=== PATIENT | female | born 1975 | race African-American/Black ===

== ENCOUNTER 2017-02-27 16:16 | Observation (INO) | payer OTHER, SELFPAY | END 2017-02-28 09:00 | disposition home or self-care (01) | PROVIDERS: Admitting Provider Internal Medicine Adolescent Medicine; Emergency Provider Emergency Medicine; Family Provider Emergency Medicine; Visit Provider Emergency Medicine | DX: I50.9 Heart failure, unspecified (principal); I89.0 Lymphedema, not elsewhere classified; E66.01 Morbid (severe) obesity due to excess calories; Z68.45 Body mass index [BMI] 70 or greater, adult | CPT/HCPCS: 36415; 71020; 71275; 80053; 82550; 82553; 82803; 83880; 84484; 85025; 85378; 87040; 93005; 93041; 94640; 94760; 96372; 96374; 96375; 99285; G0378; Q9967 ==

== ENCOUNTER → 2017-03-25 08:44 | Outpatient (CLI) | payer OTHER, SELFPAY ==
--- NOTE | 2017-03-25 08:49 | CA_ITS ---
PROCEDURE: 2-D M-mode and color Doppler study INDICATIONS FOR THE TEST: Chest pain COPD Heart Murmur Tobacco Smoking Palpitations Fatigue Syncope Edema HypertensionXDiabetes Mellitus Rheumatic Fever SOBXDOEXObesityXHyperlipidemia Family History HD Additional History CHF PATIENT INFORMATION HEIGHT: 64 WEIGHT:380 GENDER: Female B/P:140/90 2-D/M-MODE INTERPRETATION: 2-D MEASUREMENTS OBSERVED VALUES IN CMS Right Ventricular Dimension (RVDd) 3.3 Interventricular Septum (Thickness)(IVsd) 1.0 Left Ventricular Internal Dimensions(LVIDd) 4.6 Left Ventricular Posterior Wall (Thickness)(LVPWd) 1.1 Aortic Root 3.3 Aortic Cusp Separation 2.2 Left Atrial Dimensions (LAD) 3.1 2D 1. Left atrium is mildly enlarged, left ventricle is normal size, left ventricle wall thickness is upper limit of the normal, visually estimated ejection fraction 55% with no obvious regional wall motion abnormality. 2. The right atrium and right ventricle are moderately enlarged, contractility of the right ventricle is mildly reduced. 3. The aortic valve is minimally thickened and fibrosed. 4. The mitral and tricuspid valve is grossly normal. 5. The pulmonic valve is poorly visualized. 6. No significant pericardial effusion noted. DOPPLER INTERROGATION: Doppler interrogation of the aortic, mitral and tricuspid valve reveals presence of mild mitral and tricuspid regurgitation, tricuspid and jet velocity is insufficient for calculation of the right ventricular systolic pressure, diastolic parameters are inconclusive. Agitated saline contrast study fails to identify intracardiac shunt. CONCLUSION: 1. Mildly enlarged left atrium, normal left ventricular size, visually estimated ejection fraction 55% with no obvious regional wall motion abnormality, diastolic parameters are inconclusive. 2. Moderately enlarged right ventricle is mildly reduced contractility. 3. Mild mitral and tricuspid regurgitation. 4. No significant pericardial effusion noted.
[2017-03-25 11:03] LABS: Anion Gap 4.7 mEq/L (5-15); Blood Urea Nitrogen 11 mg/dL (7-18); Chloride 97 mmol/L (98-107); Creatinine,Serum 0.87 mg/dL (0.55-1.02); Estimated Glomerular Filt Rate 72 ml/min (>60); GFR (African American) 87 ML/MIN (>60); Glucose 100 mg/dL (74-106); Potassium 3.7 mmoL/L (3.5-5.1); Sodium 139 mmol/L (136-145)
[2017-03-25 11:07] LABS: Carbon Dioxide 41 mmol/L (21.0-32.0)
== END ==
PROVIDERS: Physician Assistant; Family Provider Emergency Medicine; PCP Emergency Medicine; Visit Provider Internal Medicine Cardiovascular Disease
DX: I50.30 Unspecified diastolic (congestive) heart failure (principal); G47.33 Obstructive sleep apnea (adult) (pediatric); E66.9 Obesity, unspecified
CPT/HCPCS: 36415; 80048; 83880; 93306

== ENCOUNTER → 2017-04-15 11:00 | Outpatient (CLI) | payer OTHER, SELFPAY ==
[2017-04-15 12:31] LABS: Anion Gap 8.3 mEq/L (5-15); Blood Urea Nitrogen 14 mg/dL (7-18); Carbon Dioxide 38 mmol/L (21.0-32.0); Chloride 100 mmol/L (98-107); Creatinine,Serum 0.81 mg/dL (0.55-1.02); Estimated Glomerular Filt Rate 78 ml/min (>60); GFR (African American) 94 ML/MIN (>60); Glucose 86 mg/dL (74-106); Potassium 4.3 mmoL/L (3.5-5.1); Sodium 142 mmol/L (136-145)
== END ==
PROVIDERS: Family Provider Emergency Medicine; PCP Emergency Medicine; Visit Provider Internal Medicine Cardiovascular Disease
DX: I50.33 Acute on chronic diastolic (congestive) heart failure (principal); R06.02 Shortness of breath; G47.33 Obstructive sleep apnea (adult) (pediatric); R09.02 Hypoxemia; R94.31 Abnormal electrocardiogram [ECG] [EKG]; I10 Essential (primary) hypertension; E66.9 Obesity, unspecified
CPT/HCPCS: 36415; 80048; 83880

== ENCOUNTER 2017-05-06 15:00 | Outpatient (RCR) | payer OTHER, SELFPAY ==
--- NOTE | 2017-04-23 08:28 | HMH.RHREAS ---
Rehab Reassessment Rehab OP Re-assessment Start: 04/23/17 08:21 Freq: Status: Active Protocol: Document 04/23/17 08:21 SUKUMAR (Rec: 04/23/17 08:27 SUKUMAR [id number]) Electronically Signed By Levi Ochoa, PT 04/23/17 08:21 Rehab Re-assessment Subjective Subjective Pt reports much less pain overall and wounds healing well. Objective Objective Notes Fibrotic edema remains throughout shawn Lower legs. Right anterior mungu[place] wound: length = 2.0 cm, width = 2.0 cm. Assessment Progress Assessment Progressing as Expected Assessment Notes Pt with decreased edema overall and less c/o discomfort. Wound healing steadily. Patient goals met ST,2,3,4,5 LT Goals Not Met ST LT,2,3,4,5,6 Revised Goals none Plan Plan Continue with initial POC Frequency of Therapy 2x/wk Duration of therapy 8 wks Time and Billing Re-Eval Time 15 Re-Eval Billing Units 1 PHYSICIAN CERTIFICATION: I certify the specified therapy services for Jackie Stevens are required, authorized, and reviewed every 30 days.
== END 2017-05-06 15:01 | disposition home or self-care (01) ==
LOC: PT 15:00
PROVIDERS: Family Provider Emergency Medicine; PCP Emergency Medicine; Visit Provider Emergency Medicine
DX: S81.802A Unspecified open wound, left lower leg, initial encounter (principal); S81.801A Unspecified open wound, right lower leg, initial encounter
CPT/HCPCS: 29580; 97140; 97164; 97597

== ENCOUNTER → 2018-05-16 14:07 | Outpatient (CLI) | payer OTHER, SELFPAY ==
[2018-05-16 14:33] LABS: Basophils % 0.5 % (0.1-2.0); Eosinophils # 0.5 K/mm3 (0.0-0.4); Eosinophils % 6.9 % (0.1-12.0); Hematocrit 50.8 % (37.0-47.0); Hemoglobin 14.4 g/dL (12.2-16.2); Lymphocytes # 1.6 K/mm3 (0.7-4.5); Lymphocytes % 20.1 % (10-50); Mean Corpuscular HGB Conc 28.4 g/dL (31.8-35.4); Mean Corpuscular Hemoglobin 25.9 pg (27.0-31.2); Mean Corpuscular Volume 91.3 fl (81-99); Monocytes # 0.3 K/mm3 (0.1-1.0); Monocytes % 4.3 % (1.7-9.3); Neutrophils # 5.4 K/mm3 (1.8-7.8); Neutrophils % 68.2 % (37.0-80.0); Platelet Count 233 K/mm3 (142-424); Red Blood Count 5.57 M/mm3 (4.20-5.40); Red Cell Distribution Width 14.7 % (11.5-17.5); White Blood Count 7.9 K/mm3 (4.8-10.8)
[2018-05-16 14:41] LABS: Alanine Aminotransferase 23 U/L (12-78); Albumin Level 3.5 gm/dL (3.4-5.0); Albumin/Globulin Ratio 0.8 (1.1-1.8); Alkaline Phosphatase 168 U/L (46-116); Anion Gap 10.1 mEq/L (5-15); Aspartate Amino Transferase 16 U/L (15-37); Bilirubin,Total 0.3 mg/dL (0.2-1.0); Blood Urea Nitrogen 7 mg/dL (7-18); Calcium 8.6 mg/dL (8.5-10.1); Carbon Dioxide 34 mmol/L (21.0-32.0); Chloride 101 mmol/L (98-107); Chol/HDL Ratio 2.2 (1-3.5); Cholesterol 163 mg/dL (140-200); Creatinine,Serum 0.72 mg/dL (0.55-1.02); Estimated Glomerular Filt Rate 89 ml/min (>60); GFR (African American) 107 ML/MIN (>60); Globulin 4.4 gm/dl (1.3-3.2); Glucose 119 mg/dL (74-106); HDL Cholesterol 73 mg/dL (29-89); LDL Cholesterol 78 mg/dL (0-130); Potassium 4.1 mmoL/L (3.5-5.1); Sodium 141 mmol/L (136-145); T4 (Thyroxine) 8.8 ug/dl (4.7-13.3); Thyroid Stimulating Hormone 2.22 uIU/ml (0.358-3.740); Total Protein,Serum 7.9 gm/dL (6.4-8.2); Triglycerides 59 mg/dL (30-200); VLDL Cholesterol 12 mg/dL (0-40)
[2018-05-17 09:44] LABS: Vitamin D 25 Hydroxy 6.8 ng/mL (30.0-100.0)
== END ==
PROVIDERS: Visit Provider Nurse Practitioner Family
DX: R53.83 Other fatigue (principal); E55.9 Vitamin D deficiency, unspecified; Z79.899 Other long term (current) drug therapy; R06.02 Shortness of breath; R06.2 Wheezing
CPT/HCPCS: 80053; 80061; 82652; 84436; 84443; 85025

== ENCOUNTER 2018-08-04 13:32 | Observation (INO) ==
[2018-08-04 14:09] LABS: Albumin/Globulin Ratio 0.7 (1.1-1.8); Anion Gap 7.2 mEq/L (5-15); Bilirubin,Total 0.9 mg/dL (0.2-1.0); Calcium 8.3 mg/dL (8.5-10.1); Globulin 4.3 gm/dl (1.3-3.2); Potassium 4.2 mmoL/L (3.5-5.1); Total Protein,Serum 7.3 gm/dL (6.4-8.2)
[2018-08-04 14:10] LABS: Basophils % 0.3 % (0.1-2.0); Eosinophils # 0.2 K/mm3 (0.0-0.4); Eosinophils % 1.7 % (0.1-12.0); Hematocrit 48.4 % (37.0-47.0); Hemoglobin 13.6 g/dL (12.2-16.2); Lymphocytes # 1.6 K/mm3 (0.7-4.5); Lymphocytes % 17.5 % (10-50); Mean Corpuscular Hemoglobin 22.9 pg (27.0-31.2); Mean Platelet Volume 7.9 fl (7.4-10.4); Monocytes # 0.7 K/mm3 (0.1-1.0); Neutrophils # 6.8 K/mm3 (1.8-7.8); Neutrophils % 72.4 % (37.0-80.0); Platelet Count 238 K/mm3 (142-424); Red Blood Count 5.91 M/mm3 (4.20-5.40); Red Cell Distribution Width 15.2 % (11.5-17.5); White Blood Count 9.3 K/mm3 (4.8-10.8)
[2018-08-04 14:23] LABS: ABG Base Excess 4.2 mmol/L (-2.4-2.3); ABG HCO3 29.3 mmhg (22.0-26.0); ABG Oxygen Saturation 89 % (90-100); ABG PCO2 49.9 mmhg (35.0-45.0); ABG PH 7.39 mmol/L (7.35-7.45); ABG PO2 58.2 mmhg (80-100); ABG TCO2 30.8 mmhg (23-27)
[2018-08-04 14:25] LABS: Allen's Test Acceptable
--- NOTE | 2018-08-04 15:00 | Emergency Department Note ---
ED Disposition Clinical Impression: Hypoxemia, CHF (congestive heart failure) Disposition: Admitted as Observation Condition on Discharge: Good Referrals: Sabi Diaz APRN [Primary Care Provider] - Time of Disposition: 16:58 - Critical Care Critical Care Time: No Attestation: On 08/04/18, the high probability of a clinically significant, sudden or life threatening deterioration of the following system(s) required my full and direct attention, intervention and personal management. The time I documented below is in addition to time spent performing reported procedures but includes the following listed in this critical care notation. Medical Decision Making - Medical Records Medical records reviewed: Yes: I reviewed the patient's medical records. - Tello Inquiry Pt receiving controlled substance: No Tello was queried for this patient: No Vital Signs: 08/04/18 13:45 08/04/18 14:05 08/04/18 14:58 Temperature 98.4 F Temperature Source Oral Pulse Rate 92 H Pulse Rate [Left Radial] 100 H 96 H Respiratory Rate 32 H Blood Pressure [Right Arm] 145/105 H 157/121 H Blood Pressure Mean [Right Arm] 118 133 Blood Pressure Source [Right Arm] Automatic Cuff Blood Pressure Position [Right Arm] Sitting 02 Sat by Pulse Oximetry 63 L 92 L 94 L Oxygen Delivery Method Room Air Nasal Cannula Oxygen Flow Rate (LPM) 4 08/04/18 15:58 Temperature Temperature Source Pulse Rate Pulse Rate [Left Radial] 86 Respiratory Rate Blood Pressure [Right Arm] 149/109 H Blood Pressure Mean [Right Arm] 122 Blood Pressure Source [Right Arm] Blood Pressure Position [Right Arm] 02 Sat by Pulse Oximetry 95 Oxygen Delivery Method Oxygen Flow Rate (LPM) - Lab Data Lab results reviewed: Yes: I reviewed the patient's lab results. Lab Results 08/04/18 13:48: WBC 9.3, RBC 5.91 H, Hgb 13.6, Hct 48.4 H, MCV 82.0, MCH 22.9 L, MCHC 28.0 L, RDW 15.2, Plt Count 238, MPV 7.9, Neut % (Auto) 72.4, Lymph % (Auto) 17.5, [place] % (Auto) 8.0, Eos % (Auto) 1.7, Baso % (Auto) 0.3, Neut # (Auto) 6.8, Lymph # (Auto) 1.6, [place] # (Auto) 0.7, Eos # (Auto) 0.2, Baso # (Auto) 0.0 08/04/18 13:48: Sodium 140, Potassium 4.2, Chloride 101, Carbon Dioxide 36 H, Anion Gap 7.2, BUN 14, Creatinine 1.04 H, Estimated Creat Clear 60, Estimated GFR 58 L, Est GFR ( Amer) 70, Glucose 111 H, Calcium 8.3 L, Total Bilirubin 0.9, AST 19, ALT 23, Alkaline Phosphatase 104, Total Protein 7.3, Albumin 3.0 L, Globulin 4.3 H, Albumin/Globulin Ratio 0.7 L 08/04/18 13:48: Lactate 1.7 08/04/18 13:48: B-Natriuretic Peptide 247 H 08/04/18 13:48: Troponin I 0.07 H 08/04/18 13:52: Specimen Source Right radial, O2 % 4lpm nc, ABG pH 7.39, ABG pCO2 49.9 H, ABG pO2 58.2 L, ABG HCO3 29.3 H, ABG Total CO2 30.8 H, ABG O2 Saturation 89 L, ABG Base Excess 4.2 H, Carlos Test Acceptable 08/04/18 15:07: Urine Color Yellow, Urine Appearance Clear, Urine pH 6.0, Ur Specific [place] 1.015, Urine Protein Negative, Urine Glucose (UA) Negative, Urine Ketones Negative, Urine Blood Negative, Urine Nitrate Negative, Urine Bilirubin Negative, Urine Urobilinogen 0.2, Ur Leukocyte Esterase Trace A, Urine WBC 5-10, Ur Squamous Epith Cells 5-10, Urine Bacteria 3+, Hyaline Casts Oc casional, Urine Mucus 1+ Result diagrams: 08/04/18 13:48 08/04/18 13:48 Orders (Tests/Meds): ED MEDICATIONS Discontinued Medications Generic Name Dose Route Start Last Admin Trade Name Freq PRN Reason Stop Dose Admin Furosemide 60 mg 08/04/18 15:03 08/04/18 15:09 Lasix 100mg/10ml Vial IV 08/04/18 15:04 60 mg ONCE ONE Administration Methylprednisolone Sodium Succinate 125 mg 08/04/18 13:51 08/04/18 14:15 Solu-Medrol 125mg/2ml Vial IV 08/04/18 13:52 125 mg ONCE ONE Administration ORDERS Category Date Time Status Blood Culture Stat Micro 08/04/18 13:48 Received Urine Culture Stat Micro 08/04/18 15:07 Received General Adult HPI - General Chief complaint: Shortness of Breath/Dyspnea Stated complaint: Shortness of breath Time Seen by Provider: 08/04/18 14:00 Mode of Arrival: Ambulatory Source of Information: Patient Limitations: No Limitations Description of Symptoms (Recalled from ER Triage Doc. by RN): to ed per pvt car with c/o sob pt with hx of asthma states at PCP's office o2 sats were in the 60's and sent to ed for eval. pt unable to complete sentence due to sob. pt denies any chest tightness, cough, fever, chills cpta home inhalers - Related Data Home Medications Medication Instructions Recorded Confirmed losartan 50 mg tablet 100 mg PO QDAY tab 04/07/17 08/04/18 spironolactone 25 mg tablet 25 mg PO QDAY tab 04/07/17 08/04/18 Cholecalciferol (Vitamin D3) 5,000 unit PO DAILY 08/04/18 08/04/18 [Vitamin D3] Ergocalciferol (Vitamin D2) 50,000 unit PO QWEEK 08/04/18 08/04/18 [Drisdol] Furosemide [Lasix 40mg tab] 40 mg PO DAILY 08/04/18 08/04/18 Mometasone/Formoterol [Dulera] 2 puff INHALATION BID 08/04/18 08/04/18 oxybutynin chloride 5 mg tablet 5 mg PO DAILY 08/04/18 08/04/18 Previous Rx's Medication Instructions Recorded albuterol sulfate HFA 90 1 puff INHALATION Q6H PRN #18 g 06/20/18 mcg/actuation aerosol inhaler Allergies Allergy/AdvReac Type Severity Reaction Status Date / Time Penicillins Allergy Intermediate I-HIVES Verified 08/04/18 11:08 amoxicillin [AMOXICILLIN] Allergy Unknown Verified 08/04/18 11:08 [facility] History - Hepatitis A Screen Drug use history?: No High risk sexual behaviors?: No History of sexually transmitted infection?: No Currently employed?: No Childcare worker?: No Do you have indoor plumbing?: Yes Do you have electricity?: Yes Attestation statement:: This patient has been screened for Hepatitis A risk factors. I have reviewed the patient's past medical history: Yes Medical History: Reports:: Asthma, Congestive Heart Failure, Hypertension, Seizures Comment: MATT Other Surgeries: Yes: Tubal Ligation Amputation: No Fractures: No - Social History Smoking Status: Never smoker Alcohol Intake: never Alcohol Intake Frequency:: other Substance Use Type: denies use Occupational Status: employed Housing: house Household Members: children - Psychiatric History Expresses thoughts of harming self/others: None Suicide Plan Description: No Plan Family Hx:: Coronary Artery Disease ROS Obtained: Yes All systems reviewed & no additional complaints - Constitutional Constitutional: Denies fever(s) - Eyes Eyes: Denies change in vision - Cardiovascular Cardiovascular: Reports dyspnea, Reports dyspnea on exertion - Respiratory Respiratory: Yes dyspnea on exertion - Gastrointestinal Gastrointestingal: Denies: abdominal pain - Genitourinary Female Genitourinary: Denies dysuria, Denies flank pain - Musculoskeletal Musculoskeletal: Denies muscle cramps, Denies muscle weakness - Integumentary/Breasts Skin/Breast: Reports skin swelling - Neurologic Neurologic: Denies seizure-like activity, Denies vertigo, Denies weakness - Hematologic/Lymphatic Henatologic/Lymphatic: Denies easy bleeding, Denies easy bruising Physical Exam - General General appearance: alert, in no apparent distress, in distress - Head Head exam: atraumatic, normocephalic, normal inspection - Eye Eye exam: Present: normal appearance, PERRL, EOMI - ENT ENT exam: Present: normal exam, normal oropharynx, mucous membranes moist, TM's normal bilaterally, normal external ear exam - Neck Neck exam: Present: normal inspection, full ROM, trachea midline. Absent: meningismus, lymphadenopathy - Chest Chest inspection: Present: normal inspection, symmetric chest wall rise. Absent: tenderness - Respiratory Respiratory exam: Present: normal lung sounds bilaterally, other (only scattered rhonchi) - Cardiovascular Cardiovascular exam: Present: regular rate, normal rhythm. Absent: JVD - Abdominal Exam Abdominal exam: Present: soft, normal bowel sounds. Absent: distention, tenderness, guarding - Extremities Exam Extremities exam: Present: pedal edema, other (marked brawny edema). Absent: normal inspection - Neurological Exam Neurological exam: Present: alert, oriented X3 - Psychiatric Psychiatric exam: Present: normal affect, normal mood - Skin Skin exam: Present: warm, dry, intact, other (chronic dermatitis/edema legs)
[2018-08-04 15:38] LABS: Microscopic, Urine URINE MICROSCOPIC (MICROSCOPIC)
[2018-08-04 15:46] LABS: Appearance,Urine Clear (Clear); Color,Urine Yellow (Yellow); Glucose,Urine (UA) Negative (Negative); Ketones,Urine Negative (Negative); Protein,Urine Negative (Negative); Specific Gravity, Urine 1.015 (1.005-1.030)
[2018-08-04 15:47] LABS: Bilirubin,Urine Negative (Negative); Blood, Urine Negative (Negative); Leukocyte Esterase,Urine Trace (Negative); Urobilinogen,Urine 0.2 EU/dl (0.2)
[2018-08-04 15:50] LABS: Bacteria,Urine 3+ /lpf
[2018-08-04 15:51] LABS: Hyaline Casts,Urine Occasional #/lpf (0); Mucus,Urine 1+ /lpf
--- NOTE | 2018-08-04 20:54 | History & Physical Report ---
*Admission Date: 08/04/18 *Chief complaint: sob *History of present illness: this wf presented to the ed with sob and had been sent from pcp office to ed per pvt car with c/o sob pt with hx of asthma states at PCP's office o2 sats were in the 60's and sent to ed for eval. pt unable to complete sentence due to sob. pt denies any chest tightness, cough, fever, chills cpta home inhalers- pt was admitted for eval and treatment [facility] History I have reviewed the patient's past medical history: Yes Medical History: Reports:: Asthma, Congestive Heart Failure, Hypertension, Seizures Denies:: Diabetes Mellitus Type 1, Diabetes Mellitus Type 2 *Have you ever received a pneumonia vaccine?: No *Have you received a flu vaccine this season?: No Other Surgeries: Yes: Tubal Ligation Amputation: No Fractures: No - *Social History Smoking Status: Never smoker Alcohol Intake: never Alcohol Intake Frequency:: other Substance Use Type: denies use *Occupational Status:: employed Housing: house Household Members: children *Travel in the last 8 weeks: None - Psychiatric History Expresses thoughts of harming self/others: None Suicide Plan Description: No Plan Family Hx:: Coronary Artery Disease Review of Systems - Review of Systems Review of systems:: pertinent systems reviewed and negative unless documented below - Constitutional Denies headache(s) - Eyes Denies change in vision - ENT Denies sore throat - *Cardiovascular Reports shortness of breath, Denies chest pain at rest - *Respiratory Reports shortness of breath, Denies cough - *Gastrointestinal Denies abdominal pain - *Genitourinary Denies blood in urine - *Musculoskeletal Denies joint pain - Integumentary/Breasts Denies rash - *Neurologic Denies seizure-like activity, Denies dizziness, Denies weakness - Psychiatric Denies anxiety Meds Home Medications Medication Instructions Recorded Confirmed Type losartan 50 mg tablet 100 mg PO QDAY tab 04/07/17 08/04/18 History spironolactone 25 mg tablet 25 mg PO QDAY tab 04/07/17 08/04/18 History albuterol sulfate HFA 90 1 puff INHALATION Q6H PRN #18 g 06/20/18 08/04/18 Rx mcg/actuation aerosol inhaler Cholecalciferol (Vitamin D3) 5,000 unit PO DAILY 08/04/18 08/04/18 History [Vitamin D3] Ergocalciferol (Vitamin D2) 50,000 unit PO QWEEK 08/04/18 08/04/18 History [Drisdol] Fluticasone/Vilanterol [Breo 1 inh PO DAILY 08/04/18 08/04/18 History Ellipta 200-25 Mcg INH] Furosemide [Lasix 40mg tab] 40 mg PO DAILY 08/04/18 08/04/18 History Allergies Allergy/AdvReac Type Severity Reaction Status Date / Time Penicillins Allergy Intermediate I-HIVES Verified 08/04/18 11:08 amoxicillin [AMOXICILLIN] Allergy Unknown Verified 08/04/18 11:08 Exam Vital signs and Labs for Last 24 Hours: Temp Pulse Resp BP Pulse Ox 97.5 F L 99 H 21 123/70 94 L 08/04/18 19:22 08/04/18 19:22 08/04/18 19:22 08/04/18 19:22 08/04/18 19:22 Laboratory Results - last 24 hr 08/04/18 13:48: WBC 9.3, RBC 5.91 H, Hgb 13.6, Hct 48.4 H, MCV 82.0, MCH 22.9 L, MCHC 28.0 L, RDW 15.2, Plt Count 238, MPV 7.9, Neut % (Auto) 72.4, Lymph % (Auto) 17.5, [place] % (Auto) 8.0, Eos % (Auto) 1.7, Baso % (Auto) 0.3, Neut # (Auto) 6.8, Lymph # (Auto) 1.6, [place] # (Auto) 0.7, Eos # (Auto) 0.2, Baso # (Auto) 0.0 08/04/18 13:48: Sodium 140, Potassium 4.2, Chloride 101, Carbon Dioxide 36 H, Anion Gap 7.2, BUN 14, Creatinine 1.04 H, Estimated Creat Clear 60, Estimated GFR 58 L, Est GFR ( Amer) 70, Glucose 111 H, Calcium 8.3 L, Total Bilirubin 0.9, AST 19, ALT 23, Alkaline Phosphatase 104, Total Protein 7.3, Albumin 3.0 L, Globulin 4.3 H, Albumin/Globulin Ratio 0.7 L 08/04/18 13:48: Lactate 1.7 08/04/18 13:48: B-Natriuretic Peptide 247 H 08/04/18 13:48: Troponin I 0.07 H 08/04/18 13:52: Specimen Source Right radial, O2 % 4lpm nc, ABG pH 7.39, ABG pCO2 49.9 H, ABG pO2 58.2 L, ABG HCO3 29.3 H, ABG Total CO2 30.8 H, ABG O2 Saturation 89 L, ABG Base Excess 4.2 H, Carlos Test Acceptable 08/04/18 15:07: Urine Color Yellow, Urine Appearance Clear, Urine pH 6.0, Ur Specific [place] 1.015, Urine Protein Negative, Urine Glucose (UA) Negative, Urine Ketones Negative, Urine Blood Negative, Urine Nitrate Negative, Urine Bilirubin Negative, Urine Urobilinogen 0.2, Ur Leukocyte Esterase Trace A, Urine WBC 5-10, Ur Squamous Epith Cells 5-10, Urine Bacteria 3+, Hyaline Casts Occasional, Urine Mucus 1+ 08/04/18 17:45: Troponin I 0.04 I & O for Last 24 hours: Intake & Output 08/02/18 08/03/18 08/04/18 08/05/18 11:59 11:59 11:59 11:59 Intake Total 1000 / 1000 Output Total 1758 / 1758 Balance -758 / -758 Weight 400 lb - Constitutional no acute distress, obese - *Routine HEENT Exam Head: Present: normocephalic Eye: Present: EOMI, PERRL ENT: Present: mucous membranes dry - *Routine Neck Exam Absent: JVD - *Routine Respiratory Exam Present: decreased breath sounds - *Routine Cardiovascular Exam Present: RRR, murmur - *Routine Abdominal Exam Present: soft - *Routine Extremities Exam Present: edema. Absent: calf tenderness - *Routine Skin Exam Present: intact - *Routine Neurological Exam Present: alert, oriented X3, CN II-XII intact - Routine Psychiatric Exam Present: normal affect Assessment and Plan (1) CHF (congestive heart failure) Current visit: Yes Status: Acute Qualifiers: Heart failure type: unspecified Heart failure chronicity: acute on chronic Qualified Code(s): I50.9 - Heart failure, unspecified Category: Medical Code(s): I50.9 - Heart failure, unspecified (2) MATT (obstructive sleep apnea) Current visit: No Status: Acute Category: Medical Code(s): G47.33 - Obstructive sleep apnea (adult) (pediatric) (3) Obesity Current visit: No Status: Acute Qualifiers: Obesity type: unspecified obesity type Obesity classification: adult class 3 (BMI >= 40) Serious obesity comorbidity presence: with serious comorbidity Body mass index: BMI 60.0-69.9 Qualified Code(s): E66.01 - Morbid (severe) obesity due to excess calories; Z68.44 - Body mass index (BMI) 60.0-69.9, adult Category: Medical Code(s): E66.9 - Obesity, unspecified
--- NOTE | 2018-08-05 07:35 | Consult Report ---
History of Present Illness Consult date: 08/05/18 Requesting physician: Betito Walsh Consult reason: shortness of breath Chief complaint: SOA, CHF Additional Medical History:: 1. Morbid Obesity 2. Hypertension 3. History of congestive heart failure, presumed secondary to diastolic dysfunction 4. Obstructive sleep apnea, noncompliance with CPAP therapy History of present illness: 43-year-old black female with history of diastolic dysfunction and diastolic congestive heart failure presented to PCPs office for shortness of breath with hypoxia. Patient was sent to the emergency department for further evaluation and treatment. Chest x-ray showed evidence of congestive heart failure and patient was admitted for further evaluation. BNP mildly elevated at 297. Initial troponin mildly elevated but repeat troponins have been normal. EKG is sinus with no acute changes with right axis deviation and biatrial enlargement. Patient was given IV Lasix in the ER with significant urine output noted. Patient states her shortness of breath has improved this morning. She freely admits that she has not been compliant with her medication for about a year due to recall of losartan and the fact that she has been dealing with her mother's illness and subsequent . Preliminary echocardiogram today shows preserved ejection fraction with no significant valvular heart disease. Images difficult to obtain due to morbid obesity. [facility] History Medical History: Reports:: Asthma, Congestive Heart Failure, Hypertension, Seizures Denies:: Diabetes Mellitus Type 1, Diabetes Mellitus Type 2 *Have you ever received a pneumonia vaccine?: No *Have you received a flu vaccine this season?: No Other Surgeries: Yes: Tubal Ligation Amputation: No Fractures: No - *Social History Smoking Status: Never smoker Alcohol Intake: never Alcohol Intake Frequency:: other Substance Use Type: denies use *Occupational Status:: employed Housing: house Household Members: children *Travel in the last 8 weeks: None - Psychiatric History Expresses thoughts of harming self/others: None Suicide Plan Description: No Plan Family Hx:: Coronary Artery Disease Meds Home Medications Medication Instructions Recorded Confirmed Type losartan 50 mg tablet 100 mg PO QDAY tab 04/07/17 08/04/18 History spironolactone 25 mg tablet 25 mg PO QDAY tab 04/07/17 08/04/18 History albuterol sulfate HFA 90 1 puff INHALATION Q6H PRN #18 g 06/20/18 08/04/18 Rx mcg/actuation aerosol inhaler Cholecalciferol (Vitamin D3) 5,000 unit PO DAILY 08/04/18 08/04/18 History [Vitamin D3] Ergocalciferol (Vitamin D2) 50,000 unit PO QWEEK 08/04/18 08/04/18 History [Drisdol] Fluticasone/Vilanterol [Breo 1 inh PO DAILY 08/04/18 08/04/18 History Ellipta 200-25 Mcg INH] Furosemide [Lasix 40mg tab] 40 mg PO DAILY 08/04/18 08/04/18 History Allergies Allergy/AdvReac Type Severity Reaction Status Date / Time Penicillins Allergy Intermediate I-HIVES Verified 08/04/18 11:08 amoxicillin [AMOXICILLIN] Allergy Unknown Verified 08/04/18 11:08 Review of Systems - *Cardiovascular Reports generalized swelling, Denies chest pain, Denies shortness of breath, Denies shortness of breath with activity - *Respiratory Reports shortness of breath, Reports shortness of breath with activity, Denies cough - *Gastrointestinal Denies abdominal pain, Denies loose stools, Denies vomiting - *Genitourinary Denies blood in urine - *Musculoskeletal Denies joint pain, Denies back pain - *Neurologic Denies headache(s), Denies seizure-like activity, Denies dizziness, Denies weakness Exam Vital signs and Labs for Last 24 Hours: Temp Pulse Resp BP Pulse Ox 98.0 F 73 18 135/80 96 08/05/18 04:00 08/05/18 04:00 08/05/18 04:00 08/05/18 04:00 08/05/18 04:00 Laboratory Results - last 24 hr 08/04/18 13:48: WBC 9.3, RBC 5.91 H, Hgb 13.6, Hct 48.4 H, MCV 82.0, MCH 22.9 L, MCHC 28.0 L, RDW 15.2, Plt Count 238, MPV 7.9, Neut % (Auto) 72.4, Lymph % (Auto) 17.5, [place] % (Auto) 8.0, Eos % (Auto) 1.7, Baso % (Auto) 0.3, Neut # (Auto) 6.8, Lymph # (Auto) 1.6, [place] # (Auto) 0.7, Eos # (Auto) 0.2, Baso # (Auto) 0.0 08/04/18 13:48: Sodium 140, Potassium 4.2, Chloride 101, Carbon Dioxide 36 H, Anion Gap 7.2, BUN 14, Creatinine 1.04 H, Estimated Creat Clear 60, Estimated GFR 58 L, Est GFR ( Amer) 70, Glucose 111 H, Calcium 8.3 L, Total Bilirubin 0.9, AST 19, ALT 23, Alkaline Phosphatase 104, Total Protein 7.3, Albumin 3.0 L, Globulin 4.3 H, Albumin/Globulin Ratio 0.7 L 08/04/18 13:48: Lactate 1.7 08/04/18 13:48: B-Natriuretic Peptide 247 H 08/04/18 13:48: Troponin I 0.07 H 08/04/18 13:52: Specimen Source Right radial, O2 % 4lpm nc, ABG pH 7.39, ABG pCO2 49.9 H, ABG pO2 58.2 L, ABG HCO3 29.3 H, ABG Total CO2 30.8 H, ABG O2 Saturation 89 L, ABG Base Excess 4.2 H, Carlos Test Acceptable 08/04/18 15:07: Urine Color Yellow, Urine Appearance Clear, Urine pH 6.0, Ur Specific [place] 1.015, Urine Protein Negative, Urine Glucose (UA) Negative, Urine Ketones Negative, Urine Blood Negative, Urine Nitrate Negative, Urine Bilirubin Negative, Urine Urobilinogen 0.2, Ur Leukocyte Esterase Trace A, Urine WBC 5-10, Ur Squamous Epith Cells 5-10, Urine Bacteria 3+, Hyaline Casts Occasional, Urine Mucus 1+ 08/04/18 17:45: Troponin I 0.04 08/04/18 21:05: Troponin I 0.04 I & O for Last 24 hours: Intake & Output 08/02/18 08/03/18 08/04/18 08/05/18 11:59 11:59 11:59 11:59 Intake Total 1000 / 1000 Output Total 1758 / 1758 Balance -758 / -758 Weight 397 lb 4 oz - *Routine HEENT Exam Head: Present: normocephalic Eye: Present: EOMI, PERRL ENT: Present: mucous membranes moist - *Routine Neck Exam Present: supple. Absent: JVD, carotid bruit - *Routine Respiratory Exam Present: decreased breath sounds, CTA bilaterally. Absent: accessory muscle use, rales, rhonchi, wheezes - *Routine Cardiovascular Exam Present: RRR. Absent: murmur, gallop, rubs - *Routine Abdominal Exam Present: soft. Absent: tenderness, distended, guarding - *Routine Extremities Exam Present: edema. Absent: calf tenderness - *Routine Neurological Exam Present: alert, oriented X3, moving all extremities Assessment and Plan (1) CHF (congestive heart failure) Current visit: Yes Status: Acute Qualifiers: Heart failure type: unspecified Heart failure chronicity: acute on chronic Qualified Code(s): I50.9 - Heart failure, unspecified Category: Medical Code(s): I50.9 - Heart failure, unspecified (2) MATT (obstructive sleep apnea) Current visit: No Status: Acute Category: Medical Code(s): G47.33 - Obstructive sleep apnea (adult) (pediatric) (3) Obesity Current visit: No Status: Acute Qualifiers: Obesity type: unspecified obesity type Obesity classification: adult class 3 (BMI >= 40) Serious obesity comorbidity presence: with serious comorbidity Body mass index: BMI 60.0-69.9 Qualified Code(s): E66.01 - Morbid (severe) obesity due to excess calories; Z68.44 - Body mass index (BMI) 60.0-69.9, adult Category: Medical Code(s): E66.9 - Obesity, unspecified (4) Noncompliance with medication regimen Current visit: Yes Status: Acute Category: Medical Code(s): Z91.14 - Patient's other noncompliance with medication regimen - Assessment and plan all Dx Assessment and Plan for all problems:: 1. Resume losartan 100 mg daily, Aldactone 25 mg daily along with Lasix 40 mg daily 2. Patient clinically has improved and could be discharged home later today with early outpatient follow-up. 3. Elevated troponin on admission likely secondary to cardiac strain from congestive heart failure. Would maximize medical therapy before proceeding with any further cardiac workup as outpatient.
[2018-08-05 07:37] LABS: Eosinophils % 0.6 % (0.1-12.0); Hematocrit 52.9 % (37.0-47.0); Hemoglobin 14.4 g/dL (12.2-16.2); Lymphocytes # 0.9 K/mm3 (0.7-4.5); Lymphocytes % 11.4 % (10-50); Mean Corpuscular HGB Conc 27.2 g/dL (31.8-35.4); Mean Corpuscular Hemoglobin 22.9 pg (27.0-31.2); Mean Corpuscular Volume 84.2 fl (81-99); Mean Platelet Volume 7.1 fl (7.4-10.4); Monocytes # 0.7 K/mm3 (0.1-1.0); Monocytes % 8.8 % (1.7-9.3); Neutrophils # 6.2 K/mm3 (1.8-7.8); Neutrophils % 79.2 % (37.0-80.0); Platelet Count 222 K/mm3 (142-424); Red Blood Count 6.29 M/mm3 (4.20-5.40); Red Cell Distribution Width 15.1 % (11.5-17.5); White Blood Count 7.8 K/mm3 (4.8-10.8)
--- NOTE | 2018-08-05 07:38 | Pharmacy Consult Notes ---
[facility] Pharmacy VTE Monitoring - Patient Demographics Admission date: 08/04/18 Report Date: 08/05/18 Time: 07:38 Allergies/Adverse Reactions: Patient Allergies Penicillins Allergy (Intermediate, Verified 08/04/18 11:08) I-HIVES amoxicillin [AMOXICILLIN] Allergy (Unknown, Verified 08/04/18 11:08) Height: 1.63 m Weight: 180.19 kg Patient Problems: Current Active Problems (Updated 08/05/18 @ 06:37 by Betito Walsh MD) CHF (congestive heart failure) (Acute) Hypoxemia (Acute) - VTE Risk Labs: VTE Related Lab Results Hgb 13.6 g/dL (12.2-16.2) 08/04/18 13:48 Hct 48.4 % (37.0-47.0) H 08/04/18 13:48 Plt Count 238 K/mm3 (142-424) 08/04/18 13:48 BUN 14 mg/dL (7-18) 08/04/18 13:48 Creatinine 1.04 mg/dL (0.55-1.02) H 08/04/18 13:48 Estimated Creat Clear 60 mL/min (50-200) 08/04/18 13:48 Was VTE Risk Assessment Performed: Yes VTE Score: 4 VTE Risk Level: Low Risk - Prophylaxis VTE Prophylaxis Ordered?: Yes Types of VTE Prophylaxis: TEDS Knee High Location of Applied Device: Bilateral Lower Extremeties - VTE Diagnosis Confirmed Treatment or plan recommended: Continue Current Treatment
[2018-08-05 07:48] LABS: Anion Gap 8.8 mEq/L (5-15); Calcium 8.5 mg/dL (8.5-10.1); Potassium 4.8 mmoL/L (3.5-5.1)
--- NOTE | 2018-08-05 10:10 | Discharge Summary ---
General - General Admission date:: 08/04/18 Discharge date: 08/05/18 HPI HPI: this wf presented to the ed with sob and had been sent from pcp office to ed per pvt car with c/o sob pt with hx of asthma states at PCP's office o2 sats were in the 60's and sent to ed for eval. pt unable to complete sentence due to sob. pt denies any chest tightness, cough, fever, chills cpta home inhalers- pt was admitted for eval and treatment Patient was seen in consultation with cardiology. 43-year-old black female with history of diastolic dysfunction and diastolic congestive heart failure presented to PCPs office for shortness of breath with hypoxia. Patient was sent to the emergency department for further evaluation and treatment. Chest x-ray showed evidence of congestive heart failure and patient was admitted for further evaluation. BNP mildly elevated at 297. Initial troponin mildly elevated but repeat troponins have been normal. EKG is sinus with no acute changes with right axis deviation and biatrial enlargement. Patient was given IV Lasix in the ER with significant urine output noted. Patient states her shortness of breath has improved this morning. She freely admits that she has not been compliant with her medication for about a year due to recall of losartan and the fact that she has been dealing with her mother's illness and subsequent . Preliminary echocardiogram today shows preserved ejection fraction with no significant valvular heart disease. Images difficult to obtain due to morbid obesity. Hospital Course Hospital Course: 43-year-old black female with history of diastolic dysfunction and diastolic congestive heart failure presented to PCPs office for shortness of breath with hypoxia. Patient was sent to the emergency department for further evaluation and treatment. Chest x-ray showed evidence of congestive heart failure and patient was admitted for further evaluation. BNP mildly elevated at 297. Initial troponin mildly elevated but repeat troponins have been normal. EKG is sinus with no acute changes with right axis deviation and biatrial enlargement. Patient was given IV Lasix in the ER with significant urine output noted. Patient states her shortness of breath has improved this morning. She freely admits that she has not been compliant with her medication for about a year due to recall of losartan and the fact that she has been dealing with her mother's illness and subsequent . Preliminary echocardiogram today shows preserved ejection fraction with no significant valvular heart disease. Images difficult to obtain due to morbid obesity. Objective Vital signs: Temp Pulse Resp BP Pulse Ox 98.0 F 100 H 20 117/78 91 L 08/05/18 08:09 08/05/18 08:09 08/05/18 08:09 08/05/18 08:09 08/05/18 08:09 no acute distress Comments: breathing improved, able to talk more freely - *Routine HEENT Exam Head: Present: normocephalic, atraumatic Eye: Present: PERRL ENT: Present: mucous membranes moist - *Routine Respiratory Exam Present: CTA bilaterally - *Routine Cardiovascular Exam Present: RRR - *Routine Extremities Exam Present: edema - *Routine Skin Exam Present: intact - *Routine Neurological Exam Present: alert, oriented X3 - Routine Psychiatric Exam Present: normal affect Results Labs on day of discharge: Labs from last 24 hours 08/05/18 08/05/18 08/05/18 07:28 07:28 07:28 WBC 7.8 RBC 6.29 H Hgb 14.4 Hct 52.9 H MCV 84.2 MCH 22.9 L MCHC 27.2 L RDW 15.1 Plt Count 222 MPV 7.1 L Neut % (Auto) 79.2 Lymph % (Auto) 11.4 [place] % (Auto) 8.8 Eos % (Auto) 0.6 Baso % (Auto) 0.0 L Neut # (Auto) 6.2 Lymph # (Auto) 0.9 [place] # (Auto) 0.7 Eos # (Auto) 0.0 Baso # (Auto) 0.0 Specimen Source O2 % ABG pH ABG pCO2 ABG pO2 ABG HCO3 ABG Total CO2 ABG O2 Saturation ABG Base Excess Carlos Test Sodium 139 Potassium 4.8 Chloride 99 Carbon Dioxide 36 H Anion Gap 8.8 BUN 14 Creatinine 1.13 H Estimated Creat Clear 55 Estimated GFR 53 L Est GFR ( Amer) 64 Glucose 141 H D Lactate Calcium 8.5 Total Bilirubin AST ALT Alkaline Phosphatase Troponin I B-Natriuretic Peptide Total Protein Albumin Globulin Albumin/Globulin Ratio TSH 1.76 Urine Color Urine Appearance Urine pH Ur Specific [place] Urine Protein Urine Glucose (UA) Urine Ketones Urine Blood Urine Nitrate Urine Bilirubin Urine Urobilinogen Ur Leukocyte Esterase Urine WBC Ur Squamous Epith Cells Urine Bacteria Hyaline Casts Urine Mucus 08/04/18 08/04/18 08/04/18 21:05 17:45 15:07 WBC RBC Hgb Hct MCV MCH MCHC RDW Plt Count MPV Neut % (Auto) Lymph % (Auto) [place] % (Auto) Eos % (Auto) Baso % (Auto) Neut # (Auto) Lymph # (Auto) [place] # (Auto) Eos # (Auto) Baso # (Auto) Specimen Source O2 % ABG pH ABG pCO2 ABG pO2 ABG HCO3 ABG Total CO2 ABG O2 Saturation ABG Base Excess Carlos Test Sodium Potassium Chloride Carbon Dioxide Anion Gap BUN Creatinine Estimated Creat Clear Estimated GFR Est GFR ( Amer) Glucose Lactate Calcium Total Bilirubin AST ALT Alkaline Phosphatase Troponin I 0.04 0.04 B-Natriuretic Peptide Total Protein Albumin Globulin Albumin/Globulin Ratio TSH Urine Color Yellow Urine Appearance Clear Urine pH 6.0 Ur Specific [place] 1.015 Urine Protein Negative Urine Glucose (UA) Negative Urine Ketones Negative Urine Blood Negative Urine Nitrate Negative Urine Bilirubin Negative Urine Urobilinogen 0.2 Ur Leukocyte Esterase Trace A Urine WBC 5-10 Ur Squamous Epith Cells 5-10 Urine Bacteria 3+ Hyaline Casts Occasional Urine Mucus 1+ 08/04/18 08/04/18 08/04/18 13:52 13:48 13:48 WBC RBC Hgb Hct MCV MCH MCHC RDW Plt Count MPV Neut % (Auto) Lymph % (Auto) [place] % (Auto) Eos % (Auto) Baso % (Auto) Neut # (Auto) Lymph # (Auto) [place] # (Auto) Eos # (Auto) Baso # (Auto) Specimen Source Right radial O2 % 4lpm nc ABG pH 7.39 ABG pCO2 49.9 H ABG pO2 58.2 L ABG HCO3 29.3 H ABG Total CO2 30.8 H ABG O2 Saturation 89 L ABG Base Excess 4.2 H Carlos Test Acceptable Sodium Potassium Chloride Carbon Dioxide Anion Gap BUN Creatinine Estimated Creat Clear Estimated GFR Est GFR ( Amer) Glucose Lactate Calcium Total Bilirubin AST ALT Alkaline Phosphatase Troponin I 0.07 H B-Natriuretic Peptide 247 H Total Protein Albumin Globulin Albumin/Globulin Ratio TSH Urine Color Urine Appearance Urine pH Ur Specific [place] Urine Protein Urine Glucose (UA) Urine Ketones Urine Blood Urine Nitrate Urine Bilirubin Urine Urobilinogen Ur Leukocyte Esterase Urine WBC Ur Squamous Epith Cells Urine Bacteria Hyaline Casts Urine Mucus 08/04/18 08/04/18 08/04/18 13:48 13:48 13:48 WBC 9.3 RBC 5.91 H Hgb 13.6 Hct 48.4 H MCV 82.0 MCH 22.9 L MCHC 28.0 L RDW 15.2 Plt Count 238 MPV 7.9 Neut % (Auto) 72.4 Lymph % (Auto) 17.5 [place] % (Auto) 8.0 Eos % (Auto) 1.7 Baso % (Auto) 0.3 Neut # (Auto) 6.8 Lymph # (Auto) 1.6 [place] # (Auto) 0.7 Eos # (Auto) 0.2 Baso # (Auto) 0.0 Specimen Source O2 % ABG pH ABG pCO2 ABG pO2 ABG HCO3 ABG Total CO2 ABG O2 Saturation ABG Base Excess Carlos Test Sodium 140 Potassium 4.2 Chloride 101 Carbon Dioxide 36 H Anion Gap 7.2 BUN 14 Creatinine 1.04 H Estimated Creat Clear 60 Estimated GFR 58 L Est GFR ( Amer) 70 Glucose 111 H Lactate 1.7 Calcium 8.3 L Total Bilirubin 0.9 AST 19 ALT 23 Alkaline Phosphatase 104 Troponin I B-Natriuretic Peptide Total Protein 7.3 Albumin 3.0 L Globulin 4.3 H Albumin/Globulin Ratio 0.7 L TSH Urine Color Urine Appearance Urine pH Ur Specific [place] Urine Protein Urine Glucose (UA) Urine Ketones Urine Blood Urine Nitrate Urine Bilirubin Urine Urobilinogen Ur Leukocyte Esterase Urine WBC Ur Squamous Epith Cells Urine Bacteria Hyaline Casts Urine Mucus DS: Diagnosis - Discharge Diagnosis (1) CHF (congestive heart failure) Status: Acute (2) MATT (obstructive sleep apnea) Status: Acute (3) Obesity Status: Acute (4) Noncompliance with medication regimen Status: Acute Discharge Plan - Patient Discharge Instructions ACTIVITY: Continue current activity DIET: low salt diet Patient Instructions: DI for Heart Failure - Follow up Plan Follow up with: Sabi Diaz APRN [Primary Care Provider] - Unknown provider or service follow up:: 08/05/18 10:06 early next week Disposition: Home, Self-[facility]ci Medications: Home Medications Medication Instructions Recorded Confirmed Type losartan 50 mg tablet 100 mg PO DAILY tab 04/07/17 08/05/18 History albuterol sulfate HFA 90 1 puff INHALATION Q6H PRN #18 g 06/20/18 08/04/18 Rx mcg/actuation aerosol inhaler Cholecalciferol (Vitamin D3) 5,000 unit PO DAILY 08/04/18 08/04/18 History [Vitamin D3] Ergocalciferol (Vitamin D2) 50,000 unit PO WEEKLY 08/04/18 08/05/18 History [Drisdol] Fluticasone/Vilanterol [Breo 1 puff PO DAILY 08/04/18 08/05/18 History Ellipta 200-25 Mcg INH] Furosemide [Lasix 40mg tab] 40 mg PO DAILY 08/04/18 08/04/18 History Furosemide [Lasix 40mg tab] 40 mg PO DAILY 30 Days #30 tab 08/05/18 Rx Losartan Potassium [Cozaar] 100 mg PO DAILY #30 tab 08/05/18 Rx Mometasone/Formoterol [Dulera 200 2 puff INHALATION BID 08/05/18 08/05/18 History Mcg/5 Mcg Inhaler] Spironolactone [Aldactone 25mg 25 mg PO DAILY 08/05/18 08/05/18 History Tab] Spironolactone [Aldactone 25mg 25 mg PO DAILY 30 Days #30 tab 08/05/18 Rx Tab] Prescriptions/Medication Reconciliation: No Action albuterol sulfate HFA 90 mcg/actuation aerosol inhaler 1 puff INHALATION Q6H PRN #18 g PRN Reason: shortness of breath or wheezing losartan 50 mg tablet 100 mg PO DAILY tab Cholecalciferol (Vitamin D3) [Vitamin D3] 5,000 unit PO DAILY Ergocalciferol (Vitamin D2) [Drisdol] 50,000 unit PO WEEKLY Fluticasone/Vilanterol [Breo Ellipta 200-25 Mcg INH] 1 puff PO DAILY Spironolactone [Aldactone 25mg Tab] 25 mg PO DAILY Furosemide [Lasix 40mg tab] 40 mg PO DAILY Mometasone/Formoterol [Dulera 200 Mcg/5 Mcg Inhaler] 2 puff INHALATION BID
--- NOTE | 2018-08-05 17:57 | Cardiology Report ---
PROCEDURE: 2-D M-mode and color Doppler study INDICATIONS FOR THE TEST: Chest pain COPD Heart Murmur Tobacco Smoking Palpitations Fatigue Syncope Edema Hypertension+Diabetes Mellitus Rheumatic Fever SOB+BELTR[place]N Obesity+Hyperlipidemia Family History HD Additional History ASTHMA PATIENT INFORMATION HEIGHT: 64 WEIGHT:400 GENDER: Female B/P:123/70 2-D/M-MODE INTERPRETATION: 2-D MEASUREMENTS OBSERVED VALUES IN CMS Right Ventricular Dimension (RVDd) 2.7 Interventricular Septum (Thickness)(IVsd) 1.6 Left Ventricular Internal Dimensions(LVIDd) 5.3 Left Ventricular Posterior Wall (Thickness)(LVPWd) 1.1 Aortic Root 3.4 Aortic Cusp Separation 2.3 Left Atrial Dimensions (LAD) 4.7 2D 1. Technically very difficult and poor study. 2. Left atrium is mildly enlarged, left ventricle is normal size, mild concentric left ventricular hypertrophy, visually estimated ejection fraction of 50% with no regional wall motion abnormality, there is abnormal septal motion. 3. The right atrium and right ventricle are moderately enlarged, contractility of the right ventricle appears to be normal. 4. The aortic valve, mitral and tricuspid valvular grossly normal. 5. The pulmonic valve is poorly visualized. 6. No significant pericardial effusion noted. DOPPLER INTERROGATION: Doppler interrogation of the aortic, mitral and tricuspid valvular presence of mild mitral and tricuspid regurgitation, tricuspid regurgitation jet velocity is inadequate for calculation of the right ventricular systolic pressure, diastolic parameters are inconclusive. CONCLUSION: 1. Technically difficult and poor study. 2. Mild biatrial enlargement, normal left ventricular size, visually estimated ejection fraction approximately 50% with no regional wall motion abnormality, there is abnormal septal motion. 3. Moderately enlarged right atrium and right ventricle, contractility of the right ventricle is normal. 4. Mild mitral and tricuspid regurgitation 5. No significant pericardial effusion noted.
== END 2018-08-05 12:47 | disposition home or self-care (01) ==
LOC: ER 13:32 → 2ND 17:24 → INTOOBSV 17:49 → 2ND 17:50
PROVIDERS: ADMIT Internal Medicine Adolescent Medicine; ATTEND Emergency Medicine
CPT/HCPCS: 36415; 71020; 71046; 80048; 80053; 81001; 82803; 83605; 83880; 84443; 84484; 85025; 87040; 87086; 93005; 93306; 94640; 96365; 96374; 96375; 99284; G0378

== ENCOUNTER 2018-08-29 16:00 | Outpatient (RCR) | payer OTHER, SELFPAY ==
--- NOTE | 2018-08-15 15:42 | HMH.PTOPWND ---
Rehab Outpt Wound Evaluation Rehab OP Wound Evaluation Start: 08/15/18 15:10 Freq: Status: Active Protocol: Document 08/15/18 15:35 SUKUMAR (Rec: 08/15/18 15:41 PHORNA [id number]) Electronically Signed By Levi Ochoa, SHAAN 08/15/18 15:35 Subjective/History History History Pt is a 43 yoaaf who presents with increased B LE edema x ~ 3-4 mos, worse over the past 2 -3 wks with open, draining sore to shawn lower legs. She was hospitalized ~ 10 days ago due to CHF exacerbation with SOA. She has significant hx of edema and has been treated at our clinic in the past. She reports intermittent sharp pain in the lower legs, right worse than left. She has PMH of CHF, obesity, MATT, asthma, HTN, and tubal ligation. Subjective Subjective Currently c/o pain 9/10 intermittently. Tender to palpation in shawn gaitor area, worse on the right. Lymphedema Eval Classification of Lymphedema Secondary Lymphedema Yes Stemmer's sign Stemmer's Sign no Stage of Lymphedema Lymphedema stages Stage III (Non-pitting, fibrosis and sclerosis, skin changes) Skin Changes Dry Skin Yes Skin Folds Yes Hyperkeratosis Yes Blisters Yes Wounds Yes Discoloration of Skin Yes Other Changes Yes Pain Scale Pain Scale (0-10) 9 Affected Extremities Areas Affected by Lymphedema/Edema Right Lower Extremity,Left Lower Extremity Manual Lymphatic Drainage Treatment Area MLD Treatment Area Right Lower Extremity,Left Lower Extremity Wound Problems/Impairments Impairments Problems/Impairmments Palpation Tenderness,Impaired Endurance,Impaired Gait Pattern,Impaired Walking, Increased Edema,Lymphedema Present,Wound Care Needs, Subjective C/O Pain,Impaired Self Care/Self Management Prognosis Rehab Potential Fair Clinical Impression Consistent with Diagnosis Yes Short Term Goals Number of Weeks
== END 2018-08-29 16:05 | disposition home or self-care (01) ==
LOC: PT 16:00
PROVIDERS: Visit Provider Emergency Medicine
DX: R22.43 Localized swelling, mass and lump, lower limb, bilateral (principal)
CPT/HCPCS: 97140; 97162

== ENCOUNTER → 2021-03-17 18:25 | Outpatient (CLI) | payer BC, OTHER, SELFPAY ==
[2021-03-17 18:42] LABS: Basophils # 0.1 K/mm3 (0-0.2); Basophils % 0.7 % (0.1-2.0); Eosinophils # 0.8 K/mm3 (0.0-0.4); Eosinophils % 7.7 % (0.1-12.0); Hematocrit 45.3 % (37.0-47.0); Hemoglobin 13.2 g/dL (12.2-16.2); Lymphocytes % 20.3 % (10-50); Mean Corpuscular HGB Conc 29.1 g/dL (31.8-35.4); Mean Corpuscular Hemoglobin 25.3 pg (27.0-31.2); Mean Platelet Volume 8.2 fl (7.4-10.4); Monocytes # 0.4 K/mm3 (0.1-1.0); Monocytes % 3.8 % (1.7-9.3); Neutrophils # 6.6 K/mm3 (1.8-7.8); Neutrophils % 67.6 % (37.0-80.0); Platelet Count 372 K/mm3 (142-424); Red Blood Count 5.21 M/mm3 (4.20-5.40); Red Cell Distribution Width 13.8 % (11.5-17.5); White Blood Count 9.8 K/mm3 (4.8-10.8)
[2021-03-17 19:09] LABS: Alanine Aminotransferase 15 U/L (12-78); Albumin Level 4.1 g/dl (3.5-5.0); Albumin/Globulin Ratio 1.1 (1.1-1.8); Alkaline Phosphatase 111 U/L (38-126); Anion Gap 13.1 mEq/L (5-15); Aspartate Amino Transferase 25 U/L (14-36); Bilirubin,Total 0.4 mg/dl (0.2-1.3); Blood Urea Nitrogen 8 mg/dl (7-17); Carbon Dioxide 34 mmol/L (22.0-30.0); Chloride 97 mmol/L (98-107); Chol/HDL Ratio 2.9 (1-3.5); Cholesterol 182 mg/dl (140-200); Estimated Glomerular Filt Rate 90 ml/min (>60); GFR (African American) 109 ML/MIN (>60); Globulin 3.6 g/dL (1.3-3.2); Glucose 116 mg/dl (74-100); HDL Cholesterol 62 mg/dl (40-60); Potassium 4.1 mmoL/L (3.5-5.1); Sodium 140 mmol/L (136-145); Total Protein,Serum 7.7 g/dl (6.3-8.2); Triglycerides 119 mg/dl (30-150); VLDL Cholesterol 24 mg/dL (0-40)
[2021-03-17 19:20] LABS: Direct LDL Cholesterol 91.34 mg/dL (100-129)
[2021-03-17 19:26] LABS: Free T4 (Free Thyroxine) 1.23 ng/dl (0.78-2.19)
[2021-03-17 19:40] LABS: Thyroid Stimulating Hormone 1.41 uIU/mL (0.465-4.68)
[2021-03-17 20:56] LABS: 25-OH Vitamin D, Total < 12.8 ng/mL (30-100)
== END ==
PROVIDERS: Visit Provider Emergency Medicine
DX: I10 Essential (primary) hypertension (principal); E55.9 Vitamin D deficiency, unspecified; E66.9 Obesity, unspecified; Z68.44 Body mass index [BMI] 60.0-69.9, adult; Z79.899 Other long term (current) drug therapy
CPT/HCPCS: 80053; 80061; 82306; 84439; 84443; 85025